=== PATIENT | male | born 1950 | race Caucasian/White ===

== ENCOUNTER → 2017-07-04 | Outpatient (CLI) | payer MEDICARE | LOC: COL.RAD 07-03 13:30 | DX: S70.12XA Contusion of left thigh, initial encounter (principal); R22.42 Localized swelling, mass and lump, left lower limb ==

== ENCOUNTER → 2019-11-24 | Outpatient (CLI) | payer MEDICARE | LOC: COL.RAD 07:48 | DX: Z13.6 Encounter for screening for cardiovascular disorders (principal); Z87.891 Personal history of nicotine dependence ==

== ENCOUNTER → 2020-11-24 | Outpatient (CLI) | payer MEDICARE ==
[~2020-11-24] MED LIST: DECADRON6 MG PO; FOLIC ACID 11 MG/TA1 PO; OMNICEF 300MG300 MG PO; THIAMINE 1100 MG/TAB PO; ZITHROMAX500 M2 PO
== END ==
LOC: COL.RAD 13:58
DX: Z12.2 Encounter for screening for malignant neoplasm of respiratory organs (principal); Z87.891 Personal history of nicotine dependence

== ENCOUNTER 2021-05-29 13:06 | Inpatient (IN) | payer MEDICARE, BC ==
[~2021-05-29] VITALS: Ht 188 cm; Wt 94.5 kg
[2021-05-29 14:07] LABS: BASO % 0.2 % (0.0-2.0); GRAN # 4.8 K/mm3 (1.4-6.5); GRAN % 71.3 % (42.2-75.2); HEMATOCRIT 46.2 % (42.0-52.0); HEMOGLOBIN 16.4 g/dl (13.5-18.0); LYMPH # 1.1 K/mm3 (1.2-3.4); LYMPH % 16.2 % (20.0-51.0); MEAN CELL VOLUME 96 fl (80.0-100.0); MEAN CORPUSCULAR HEMOGLOBIN 34 pg (27.0-31.0); MEAN CORPUSCULAR HGB CONC 36 g/dl (33.0-37.0); MONO # 0.8 K/mm3 (0.1-0.6); MONO % 11.7 % (1.7-9.3); PLATELET COUNT 198 K/mm3 (130-400); RED BLOOD COUNT 4.81 M/mm3 (4.20-5.60); REDCELL DISTRIBUTION WIDTH-CV 11.7 % (11.5-14.5)
[2021-05-29 14:33] LABS: ALBUMIN 3.4 gm/dL (3.4-4.8); CALCIUM 9.6 mg/dL (8.4-10.2); CREATININE, serum 2.05 mg/dL (0.72-1.25); POTASSIUM 3.9 mmol/L (3.5-4.5); TOTAL PROTEIN 7.4 gm/dL (6.2-8.1)
[2021-05-29 15:08] LABS: TROPONIN-I 0.135 ng/mL (0.00-0.033)
--- NOTE | 2021-05-29 18:32 | NUR ---
Report from ER nurse. Will report off to nightnurse. Patient has not yet arrived from ER
[2021-05-29 20:04] VITALS: BP 128/72; PULSE 93; TEMP 98.3
[2021-05-30] VITALS (8 sets, daily range): BP systolic 95–109; BP diastolic 45–59; PULSE 55–71; TEMP 97.7–99.4
--- NOTE | 2021-05-30 00:35 | NUR ---
PT ARRIVED TO FLOOR DURING PREVIOUS SHIFT, PT ALREADY IN ROOM 302 WHEN THIS NURSE RECEIVED REPORT. PT IS A/OX4, VSS, 02 ROOM AIR AT THIS TIME. PT DENIES N,V,CONSTIPATION. PT DOES REPORT DIAHHREA THAT HE REPORTS HE HAS HAD FOR THE PAST TWO WEEKS AND HE REPORTS A WEIGHT LOSS OF OVER 20LBS IN THE PAST 2-3 WEEKS. HIS IS THE PT IN THE ROOM NEXT DOOR AND HE CONFIRMS RELEASING ALL INFORMATION TO HER AND VICE VERSA. ADMISSION COMPLETE, MED REC COMPLETE WHICH REQUIRES CLARIFICATION PT IS UNAWARE OF WHAT BLOOD PRESSURE MEDICATION HE TAKES. WILL CALL PCP IN THE MORNING. ID CONSULT COMPLETE. TONGSMAN CONSULT COMPLETED PRIOR TO THIS RN SHIFT PER NOTES. PT ORIENTED TO FLOOR, HOSPITAL POLICY. VERBALIZES UNDERSTANDING. POC DISCUSSED WITH PT. PT VERBALIZES UNDERSTANDING. ALL QUESTIONS/CONCERNS ANSWERED AT THIS TIME. CALL LIGHT WITHIN REACH.
--- NOTE | 2021-05-30 06:18 | NUR ---
PT 02 NEEDS INCREASED THIS SHIFT. PT WENT FROM RA TO 3LNC HE WAS SATURATING 84 PERCENT WHILE STATIONARY IN BED. ALL QUESTIONS/CONCERNS ANSWERED. PT INSTRUCTED TO PRONE MUCH POSSIBLE. PT VERBALIZES UNDERSTANDING BUT HAS NOT APPLIED TEACHINGS. CALL LIGHT WITHIN REACH.
[2021-05-30 08:15] LABS: BASO % 0.3 % (0.0-2.0); GRAN # 2.5 K/mm3 (1.4-6.5); GRAN % 65.6 % (42.2-75.2); LYMPH # 0.9 K/mm3 (1.2-3.4); LYMPH % 22.2 % (20.0-51.0); MEAN CELL VOLUME 94 fl (80.0-100.0); MEAN CORPUSCULAR HEMOGLOBIN 34 pg (27.0-31.0); MEAN CORPUSCULAR HGB CONC 36 g/dl (33.0-37.0); MONO # 0.4 K/mm3 (0.1-0.6); MONO % 11.1 % (1.7-9.3); PLATELET COUNT 133 K/mm3 (130-400); RED BLOOD COUNT 4.05 M/mm3 (4.20-5.60); REDCELL DISTRIBUTION WIDTH-CV 11.6 % (11.5-14.5)
[2021-05-30 08:28] LABS: HEMOGLOBIN 13.8 g/dl (13.5-18.0)
[2021-05-30 08:30] LABS: CALCIUM 8.1 mg/dL (8.4-10.2); CREATININE, serum 1.01 mg/dL (0.72-1.25); MAGNESIUM 2.2 mg/dL (1.6-2.6); POTASSIUM 4.3 mmol/L (3.5-4.5)
--- NOTE | 2021-05-30 09:00 | NUR ---
PT ALERT AND ORIENTED. PT ABLE REPORTING PAIN 3/10 IN KNEES FROM ARTHRITIS PER PT. PT HAS EXPIRATORY WHEEZES NOTED IN LEFT LOWER LOBE. RIGHT LOBES CLEAR IN ALL, LEFT UPPER LOBE CLEAR. S1,S2 HEARD. PT REPORTS FALLING DUE TO ENVIRONMENTAL CIRCUMSTANCES WITH WORKING AND RECREATIONAL ACTIVITIES. PT BLOOD PRESSURE LOW, ASYMPTOMATIC. PT CALL LIGHT WITHIN REACH.
--- NOTE | 2021-05-30 16:32 | NUR ---
The patient is COVID positive. SW contacted the patient to discuss discharge plan. The patient lives in [place] with his , Renata. Renata is also currently hospitalized at our hospital. He reports independence with ADLs and does not have any DME. The patient's PCP is Dr. Diane Valadez and he receives his medications from [facility]. He reports no difficulties obtaining his meds. The patient does not have a DPOA-HC. He states that he has one child: Aster. The patient does not have his cell phone and could not recall Aster's phone number. He states that Aster is aware that him and his mother are here though. The patient plans to return home with his upon discharge. He is currently requiring 3 liters of oxygen. SW to continue to monitor. *Discharge plan: home with *
--- NOTE | 2021-05-30 16:45 | NUR ---
PT BLOOD PRESSURE LOW 95/58. TREND HAS BEEN SOFT, PT DENIES SOA,DIZZINESS,LIGHTHEADEDNESS. MAP 66.
--- NOTE | 2021-05-30 17:07 | NUR ---
NOTIFIED DR. HANSEN OF QUESTIONS WITH INCREASING TROPONINS. DR. HANSEN STATES NO LONGER TRENDING TROPONINS. NO NEW ORDERS RECEIVED.
--- NOTE | 2021-05-30 18:24 | NUR ---
PT FOUND WIHTOUT OXYGEN ON IN ROOM. INSTRUCTED TO PUT ON OXYGEN. PT DID NOT WAIT FOR SPO2 CHECK, WENT TO RESTROOM. SPO2 RECHECKED UPON RETURN TO BED, 98% ON 3L.
--- NOTE | 2021-05-30 18:55 | NUR ---
PT CONTINUING ON PLAN OF CARE. PT HAD ELEVATED TEMP FOR 0800 VS, RESOLVED WITH 1200 AND 1600 VITAL SIGNS. PT ABLE TO AMBULATE TO BATHROOM PRIVILEGES, NEEDS MORE EDUCATION TO KEEP OXYGEN ON WHILE AMBULATING. PT HAD SOFT PRESSURES, ASYMPTOMATIC, WILL PASS ON TO IOS DEVELOPER.
[2021-05-31 03:18] VITALS: BP 96/48; PULSE 57; TEMP 97.3
--- NOTE | 2021-05-31 05:45 | NUR ---
PT HAD UNEVENTFUL NIGHT THIS SHIFT. 02 3L NC. BLOOD PRESSURE REMAINS SOFT. PT EXPRESSES NO ADDITIONAL NEEDS AT THIS TIME. CALL LIGHT WITHIN REACH.
[2021-05-31 07:45] LABS: BASO % 0.2 % (0.0-2.0); GRAN # 4.8 K/mm3 (1.4-6.5); GRAN % 80.3 % (42.2-75.2); HEMATOCRIT 38.6 % (42.0-52.0); HEMOGLOBIN 13.7 g/dl (13.5-18.0); LYMPH # 0.6 K/mm3 (1.2-3.4); LYMPH % 10.3 % (20.0-51.0); MEAN CELL VOLUME 96 fl (80.0-100.0); MEAN CORPUSCULAR HEMOGLOBIN 34 pg (27.0-31.0); MEAN CORPUSCULAR HGB CONC 36 g/dl (33.0-37.0); MONO # 0.5 K/mm3 (0.1-0.6); MONO % 8.5 % (1.7-9.3); PLATELET COUNT 144 K/mm3 (130-400); RED BLOOD COUNT 4.02 M/mm3 (4.20-5.60); REDCELL DISTRIBUTION WIDTH-CV 11.8 % (11.5-14.5)
[2021-05-31 08:05] LABS: ALBUMIN 2.6 gm/dL (3.4-4.8); BILIRUBIN,TOTAL 0.3 mg/dL (0.2-1.2); C-REACTIVE PROTEIN 4.81 mg/dL (0.00-0.50); CALCIUM 8.3 mg/dL (8.4-10.2); CREATININE, serum 0.76 mg/dL (0.72-1.25); MAGNESIUM 2.1 mg/dL (1.6-2.6); PHOSPHOROUS 2.9 mg/dL (2.3-4.7); POTASSIUM 4.5 mmol/L (3.5-4.5); TOTAL PROTEIN 6.1 gm/dL (6.2-8.1)
[2021-05-31 09:03] VITALS: BP 98/50; PULSE 104; TEMP 97.8
[2021-05-31 12:13] VITALS: BP 100/59; PULSE 88; TEMP 97.7
[2021-05-31 15:45] VITALS: BP 110/51; PULSE 56; TEMP 98.1
--- NOTE | 2021-05-31 19:30 | NUR ---
Pt's O2 needs remain at 3 L nc, pt still with cough and some sputum. Blood sugars elevated in the 200's this afternoon. Some tremors noted to right arm that shortly passed this evening, no other withdrawl symptoms noted. Pt's biggest concern is getting a good nights sleep tonight.
[2021-05-31 20:01] VITALS: BP 122/65; PULSE 69; TEMP 97.7
[2021-06-01] VITALS (7 sets, daily range): BP systolic 108–132; BP diastolic 59–70; PULSE 53–66; TEMP 3
--- NOTE | 2021-06-01 05:17 | NUR ---
PT HAD UNEVENTFUL NIGHT THIS SHIFT. PT CONTINUES TO HAVE DIFFICULTY SLEEPING REGARDLESS OF MEDICATION ADMINISTRATION. ABX ADMINISTERED ORDERED. PT EXPRESSES NO ADDITONAL NEEDS THIS SHIFT. CALL LIGHT WITHIN REACH.
[2021-06-01 07:13] LABS: GRAN # 5.6 K/mm3 (1.4-6.5); GRAN % 80.4 % (42.2-75.2); HEMATOCRIT 40.6 % (42.0-52.0); HEMOGLOBIN 14.1 g/dl (13.5-18.0); LYMPH # 0.8 K/mm3 (1.2-3.4); LYMPH % 11.1 % (20.0-51.0); MEAN CELL VOLUME 99 fl (80.0-100.0); MEAN CORPUSCULAR HEMOGLOBIN 34 pg (27.0-31.0); MEAN CORPUSCULAR HGB CONC 35 g/dl (33.0-37.0); MEAN PLATELET VOLUME 10.7 fl (7.4-10.4); MONO # 0.5 K/mm3 (0.1-0.6); MONO % 7.8 % (1.7-9.3); PLATELET COUNT 165 K/mm3 (130-400); RED BLOOD COUNT 4.12 M/mm3 (4.20-5.60); REDCELL DISTRIBUTION WIDTH-CV 11.8 % (11.5-14.5)
[2021-06-01 07:32] LABS: ALBUMIN 2.6 gm/dL (3.4-4.8); CALCIUM 8.4 mg/dL (8.4-10.2); CREATININE, serum 0.75 mg/dL (0.72-1.25); MAGNESIUM 1.9 mg/dL (1.6-2.6); PHOSPHOROUS 2.8 mg/dL (2.3-4.7); POTASSIUM 4.6 mmol/L (3.5-4.5)
[2021-06-01] MEDS ORDERED: DECADRON6 MG PO ×2 (13:04→14:09)
[2021-06-01] MEDS ORDERED: FOLIC ACID 11 MG/TA1 PO ×2 (13:04→14:10)
[2021-06-01] MEDS ORDERED: ZITHROMAX500 M2 PO ×2 (13:04→14:09)
[2021-06-01] MEDS ORDERED: OMNICEF 300MG300 MG PO ×2 (13:04→14:04)
[2021-06-01] MEDS ORDERED: THIAMINE 1100 MG/TAB PO ×2 (13:04→14:10)
--- NOTE | 2021-06-01 13:45 | NUR ---
Via [facility] today. Spoke with railroad construction director-Pedro who states that he is working on an order now and this patient would be next. Orders faxed to [facility] for oxygen.
--- NOTE | 2021-06-01 14:55 | NUR ---
Pedro with [facility] called to inform me that he will be bringing the patient's oxygen up to the hospital's nursing staff.
[2021-06-02 04:23] VITALS: BP 119/72; PULSE 51; TEMP 97.5
--- NOTE | 2021-06-02 05:52 | NUR ---
pt left oxygen on during the noc @2L, c/o some stomach upset during the noc, order for TUMS obtained and given. BGM at midnight was 272, 4 units SS given.
[2021-06-02 07:18] LABS: BASO % 0.1 % (0.0-2.0); GRAN # 5.8 K/mm3 (1.4-6.5); GRAN % 82.4 % (42.2-75.2); HEMOGLOBIN 13.3 g/dl (13.5-18.0); LYMPH # 0.6 K/mm3 (1.2-3.4); LYMPH % 8.9 % (20.0-51.0); MEAN CELL VOLUME 96 fl (80.0-100.0); MEAN CORPUSCULAR HEMOGLOBIN 34 pg (27.0-31.0); MEAN CORPUSCULAR HGB CONC 36 g/dl (33.0-37.0); MEAN PLATELET VOLUME 10.6 fl (7.4-10.4); MONO # 0.6 K/mm3 (0.1-0.6); MONO % 7.9 % (1.7-9.3); PLATELET COUNT 176 K/mm3 (130-400); RED BLOOD COUNT 3.87 M/mm3 (4.20-5.60); REDCELL DISTRIBUTION WIDTH-CV 11.6 % (11.5-14.5)
[2021-06-02 07:39] LABS: ALBUMIN 2.5 gm/dL (3.4-4.8); BILIRUBIN,TOTAL 0.5 mg/dL (0.2-1.2); C-REACTIVE PROTEIN 1.02 mg/dL (0.00-0.50); CREATININE, serum 0.68 mg/dL (0.72-1.25); POTASSIUM 4.2 mmol/L (3.5-4.5); TOTAL PROTEIN 5.7 gm/dL (6.2-8.1)
[2021-06-02 08:30] VITALS: BP 116/60; PULSE 52; TEMP 98.5
[2021-06-02 11:43] VITALS: BP 134/64; PULSE 62; TEMP 97.6
--- NOTE | 2021-06-02 17:04 | NUR ---
PT MET CRITERIA FOR DISCHARGE, VSS. IV REMOVED WITHOUT COMPLICATIONS, CATHETER INTACT. DISCHARGE INSTRUCTIONS REVIEWED, PT VERBALIZED UNDERSTANDING. PT AWARE OF FOLLOW UP APPTS AND PRESCRIPTIONS TO INSTRUMENT AND ELECTRICAL TECHNICIAN. PT DC TO HOME WITH SUPPLEMENTAL O2 VIA WHEELCHAIR ACCOMPANIED BY CERTIFIED LACTATION EDUCATOR.
== END 2021-06-02 17:09 | disposition home or self-care (01) | DRG 177 ==
LOC: COL.ER 13:06 → MEDICAL 17:20
PROVIDERS: Family Medicine; Internal Medicine Sleep Medicine; ADMIT Internal Medicine
PROC: XW033E5 Introduction of Remdesivir Anti-infective into Peripheral Vein, Percutaneous Approach, New Technology Group 5 (ICD-10-PCS; principal; 2021-05-31)
DX: U07.1 COVID-19 (principal); J12.82 Pneumonia due to coronavirus disease 2019; J96.01 Acute respiratory failure with hypoxia; N17.9 Acute kidney failure, unspecified; I24.8 Other forms of acute ischemic heart disease; I10 Essential (primary) hypertension; Z87.891 Personal history of nicotine dependence; Z73.0 Burn-out
CPT/HCPCS: 99232-AI; 99233-AI; 99239; J0456; J0696; J1100; J1644; J1815; J3411; J7030; J7050; Q9967